=== PATIENT | female | born 1955 | race Caucasian/White ===

== ENCOUNTER → 2018-04-03 07:54 | Outpatient (CLI) | payer OTHER, SELFPAY ==
--- NOTE | 2018-04-03 | DI.ECHO.S_ITS ---
[facility]---------+ [facility] +---------+ : : [address] : : : : [id number] : : : : Phone: [phone]+ Echocardiogram Report + + :Name: JOSE A TRISTAN Study Date: 04/03/2018 Height: 63 in : :[facility] Weight: 146 lb : : Gender: Female BSA: 1.7 m2 : :: 1955 Age: 63 yrs BP: 120/68 mmHg: :Reason For Study: Atrial fibrillation : :Ordering Physician: Dr. Sharma : :Roof Performed By: Izabella Simms : :Referring: KARIS VALENTE : + + Interpretation Summary The left ventricle is normal in size, wall thickness, and systolic function without any focal wall motion abnormalities. The ejection fraction is estimated to be 60-65%. The right ventricle is normal in size and function. The PA systolic pressure is normal at about 29 mmHg, assuming RA pressure of 3 mmHg. No significant valvular pathology. No prior echo for comparison. Procedure: A two-dimensional transthoracic echocardiogram with color flow and Doppler was performed. The study quality was technically adequate. There is no prior echocardiogram noted for this patient. The patient was in normal sinus rhythm during the exam. Left Ventricle: The left ventricle is normal in size, wall thickness, and systolic function without any focal wall motion abnormalities. The ejection fraction is estimated to be 60-65%. Diastolic parameters suggest probable normal left ventricular diastolic function and normal filling pressures. Right Ventricle: The right ventricle is normal in size and function. The right ventricular systolic function is normal. TAPSE measured offline, at least 2cm. Atria: The left atrium is suboptimally visualized but appears to be of normal size or at most, borderline dilated. Right atrial size is normal. There is no Doppler evidence for an atrial septal defect. Mitral Valve: The mitral valve is grossly normal. There is mild mitral regurgitation. Aortic Valve: The aortic valve is trileaflet. The aortic valve opens well. There is no aortic valve stenosis. No aortic regurgitation is present. Tricuspid Valve: The tricuspid valve leaflets are thin and pliable. There is mild tricuspid regurgitation. The right ventricular systolic pressure is estimated to be at least 29 mmHg based on an estimated right atrial pressure of 3 mm Hg. Pulmonic Valve: The pulmonic valve is not well seen, but is grossly normal. There is no pulmonic valvular regurgitation. Great Vessels: The aortic root is normal size. The dimensions of the ascending aorta are normal. The aortic arch is normal in size. The IVC is of normal diameter and collapses greater than 50% with a sniff. This suggests a low right atrial pressure of 3 mm Hg. Pericardium/ Pleura There is no pericardial effusion. There is no pleural effusion. MMode/2D Measurements & Calculations LVIDd: 4.6 cm Ao root diam: 3.0 cm LVIDs: 3.1 cm Aortic Jxn: 2.3 cm FS: 31.4 % asc Aorta Diam: 2.8 cm EPSS: 0.55 cm Ao Arch Diam (Prox Trans): 2.8 cm IVSd: 0.79 cm LVPWd: 0.78 cm LV del real. diameter/BSA (cm/m^2): 2.7 LV sys. diameter/BSA (cm/m^2): 1.9 LA dimension: 3.3 cm RA long axis: 4.8 cm LA A2 area: 22.0 cm2 RA area: 15.1 cm2 LA A4 area: 28.1 cm2 RA vol: 40.2 ml LA length (vol): 6.3 cm RA : 23.8 ml/m2 LA vol: 83.6 ml IVC diam: 2.0 cm LA vol index: 49.4 ml/m2 RVDd major: 5.2 cm RVD1 (basal): 3.3 cm RVD2 (mid): 2.8 cm Doppler Measurements & Calculations Ao V2 max: 121.6 cm/sec MV E max carlos: 74.0 cm/sec Ao V2 mean: 79.1 cm/sec MV A max carlos: 32.7 cm/sec Ao max P.9 mmHg MV E/A: 2.3 Ao mean P.9 mmHg Med Peak E' Carlos: 9.6 cm/sec Ao V2 VTI: 29.8 cm E/E' med: 7.7 Lat Peak E' Carlos: 9.4 cm/sec E/E' lat: 7.9 E/e' average: 7.8 MV dec time: 0.29 sec MV P1/2t: 86.4 msec TR max carlos: 255.6 cm/sec MV P1/2t max carlos: 75.4 cm/sec TR max P.1 mmHg MVA(P1/2t): 2.5 cm2 PA V2 max: 81.2 cm/sec PA V2 mean: 52.8 cm/sec PA mean P.3 mmHg PA Accel Time: 0.21 sec Electronically signed by: Charlie Smith M.D. on Reading Physician:04/03/2018 10:03 AM
== END ==
PROVIDERS: Visit Provider Internal Medicine Cardiovascular Disease
DX: I48.91 Unspecified atrial fibrillation (principal); I08.1 Rheumatic disorders of both mitral and tricuspid valves
CPT/HCPCS: 93306

== ENCOUNTER → 2018-04-17 08:09 | Outpatient (CLI) | payer OTHER, SELFPAY ==
--- NOTE | 2018-04-17 09:24 | PM.TREADMILL ---
Cardiac Stress Test Report Referral & Results Date Patient Seen: 04/17/18 Requesting provider: Tevin William Indication: Atrial fibrillation Rest ECG: Unremarkable, sinus rhythm Procedure Note: Today following both written and verbal informed consent, the patient was exercised according to a standard Jonas protocol. The patient exercised for a total of 8 min 54 sec achieving a maximum heart rate of 167. Patient's maximum systolic blood pressure was 174. This was an estimated 10.1 MET's. There are no ST-T segment changes identified Normal heart rate and blood pressure response to exercise In recovery only there were frequent PACs Functional aerobic impairment was way off the scale estimated to be-20% or more on the active scale or exercise capacity equal that of an active 42-year-old Impression: No evidence of ischemia Excellent exercise capacity Please note: Actual ECG tracings can be found in the PACS system.
== END ==
PROVIDERS: PCP Internal Medicine; Visit Provider Internal Medicine Cardiovascular Disease
DX: I48.91 Unspecified atrial fibrillation (principal)
CPT/HCPCS: 93016; 93017; 93018

== ENCOUNTER → 2019-07-24 09:06 | Outpatient (CLI) | payer OTHER, SELFPAY ==
--- NOTE | 2019-07-24 | DI.RAD.S_ITS ---
PROCEDURE: XR ABDOMEN 1V INDICATIONS: Other constipation TECHNIQUE: The patient was given a Sitzmark capsule by the director of radiology and was instructed to swallow the capsule on the day it was given. Patient returned 5 days later for followup imaging. Supine 1 view abdomen radiograph acquired. COMPARISON: None. FINDINGS: Surgical changes and devices: Sterilization clips are seen. Bowel: There are 5 out of 24 Sitzmark rings remaining within the sigmoid colon and rectum. Bowel gas pattern is normal. There is a moderate amount of stool seen within the colon. Soft tissues: No suspicious abdominal calcifications. Visualized solid organ contours appear normal in size. Bones: No suspicious bony lesions. Age-appropriate bony degenerative changes are seen. IMPRESSION: The colon transit is considered to be at the lower limits of normal, with 5 of the 24 Sitzmark capsules seen within the distal colon. There is a moderate amount of stool seen within the colon, which is consistent with the given history of constipation. Dictated by: Tal Osorio M.D. on 07/24/2019 at 8:42 Approved by: Tal Osorio M.D. on 07/24/2019 at 8:47
== END ==
PROVIDERS: Referring Provider Internal Medicine Gastroenterology; Visit Provider Internal Medicine Gastroenterology
DX: K59.09 Other constipation (principal)
CPT/HCPCS: 74018